=== PATIENT | female | born 1950 | race Caucasian/White ===

== ENCOUNTER → 2020-04-04 14:43 | Outpatient (CLI) | payer MEDICARE, OTHER, SELFPAY ==
--- NOTE | 2020-04-04 14:45 | CT_ITS ---
STUDY: LOW DOSE CT LUNG CANCER SCREENING REASON FOR EXAM: Female, 69 years old. PRIOR SMOKER-QUIT X10 YRS AGO 1.5PPD X44 YEARS RADIATION DOSAGE (If Supplied By Facility): CTDIvol = ( 3.02 ) mGy, DLP = ( 106.46 ) mGycm TECHNIQUE: No contrast was administered. Low dose technique was utilized (average mAS-38 and kVp 120). 1.25 mm axial source images with a slice interval of 1.25-mm were reconstructed in lung windows. 2.5 mm axial source images with a slice interval of 2.5-mm were reconstructed in lung windows. 5.0 mm axial source images with a slice interval of 5.0-mm were reconstructed in soft tissue windows. Nodule measured using lung windows on PACS and/or independent workstation with automated measurement of minimum and maximum diameter. Nodule measurement reported as average diameter rounded to the nearest whole number. Growth is defined as an increase ins size of greater than 1.5 mm. COMPARISON: Comparison is made with prior examination dated 01/12/2017. NODULES: No suspicious nodular density is seen. Emphysema: Diffuse emphysematous changes worse in the upper lobes. Stable scarring in both lung apices worse on the right side with a bullous formation. Minimal increased markings in the peripheral aspect of the posterior aspect of the right middle lobe suggestive of scarring. This is unchanged. Endobronchial lesion: None Aorta: Atherosclerotic calcification of the aortic arch and descending thoracic aorta. Coronary arteries: Coronary artery calcification. Mediastinal nodes: Calcified right hilar lymph nodes and precarinal lymph nodes. Other chest and abdominal findings: Large hiatal hernia. CT/Low Dose CT Lung Screening IMPRESSION: Lung-RADS category 2 - Continue annual screening with LDCT in 12 months. IMPORTANT NOTES FOR USE: ACR Lung-RADS Version 1.0 Assessment Categories Release Date: August 28, 2013 Category: Coded 0-4 bases on nodule(s) with highest degree of suspicion. Negative screen is defined as categories 1 and 2; a positive screen is defined as categories 3 and 4. Category 3 and 4A nodules that are unchanged on interval CT should be coded as category 2, and individuals returned to screening in 12 months. Category 4X: Category 3 or 4 nodules with additional imaging findings that increase the suspicion of lung cancer, such as spiculation, GGN that doubles in size in 1 year, enlarged lymph notes, etc. Category Modifiers: S (significant finding unrelated to lung cancer) and C (prior history of treated lung cancer) may be added to the 0-4 Lung-RADS Electronically Signed: Martin Starks, at 15:16 EST , Service support ,
== END ==
PROVIDERS: PCP Preventive Medicine Occupational Medicine; Referring Provider Internal Medicine Pulmonary Disease; Visit Provider Internal Medicine Pulmonary Disease
DX: Z87.891 Personal history of nicotine dependence (principal)
CPT/HCPCS: G0297

== ENCOUNTER → 2021-03-11 15:33 | Outpatient (CLI) | payer MEDICARE, OTHER, SELFPAY ==
[2021-03-11 18:01] LABS: Ferritin 116 ng/mL (8-252)
== END ==
PROVIDERS: PCP Preventive Medicine Occupational Medicine; Referring Provider Internal Medicine Pulmonary Disease; Visit Provider Internal Medicine Pulmonary Disease
DX: D50.9 Iron deficiency anemia, unspecified (principal)
CPT/HCPCS: 36415; 82728

== ENCOUNTER → 2021-12-04 | Outpatient (CLI) | payer MEDICARE, OTHER, SELFPAY ==
--- NOTE | 2021-12-04 10:41 | RAD_ITS ---
INDICATION: hypoxemia, cough, dyspnea EXAMINATION/TECHNIQUE: X-RAY - XR Chest 2 Views COMPARISON: 07/19/2015. FINDINGS: LINES/DEVICES: None. LUNGS: Biapical prominence and pleural reaction is visualized consistent with COPD changes. The bronchovascular and interstitial lung markings are unremarkable. No consolidation, edema or effusion. No pneumothorax. MEDIASTINUM AND CARDIOVASCULAR STRUCTURES: Cardiac silhouette not enlarged. Moderate-sized hiatus hernia with fluid level is visualized, this demonstrates increase in size in comparison to the prior study. BONES AND SOFT TISSUES: Unremarkable. RAD/Chest PA and Lateral IMPRESSION: Moderate-sized hiatus hernia demonstrates increase in size in comparison to the prior study. No radiographic evidence of acute cardiopulmonary disease. Electronically Signed: Martín Wood MD at 12:00 EDT ,
[2021-12-04 12:18] LABS: Hematocrit 39.1 % (37-47); Hemoglobin 12.5 g/dL (12.0-15.0); Mean Corpuscular Hgb 31.5 pg (27.0-32.0); Mean Corpuscular Volume 98.5 fL (81-99); Mean Platelet Vol. 11.1 fl (6.2-12.0); Platelet Count 196 K/mm3 (150-450); RBC Distribution Width CV 13.1 % (11.6-14.6); RBC Distribution Width SD 46.9 fl (35.1-43.9); Red Blood Count 3.97 M/mm3 (4.2-5.4); White Blood Count 5.4 K/mm3 (4.4-11.0)
== END | disposition home or self-care (01) ==
LOC: MTLAB 10:37
PROVIDERS: PCP Preventive Medicine Occupational Medicine; Referring Provider Internal Medicine Pulmonary Disease; Visit Provider Internal Medicine Pulmonary Disease
DX: D64.9 Anemia, unspecified (principal); R06.02 Shortness of breath; R09.02 Hypoxemia; R05.9 Cough, unspecified
CPT/HCPCS: 36415; 71046; 85027